=== PATIENT | male | born 1955 | race Caucasian/White ===

== ENCOUNTER 2017-04-15 10:00 | Inpatient (IN) | payer MEDICAID ==
[~2017-04-15] VITALS: Ht 172.7 cm; Wt 75.0 kg
[2017-04-15 12:10] LABS: ALBUMIN 3.6 g/dL (3.4-5.0); BILIRUBIN TOTAL 0.44 mg/dL (0.20-1.00); CALCIUM 8.4 mg/dL (8.5-10.1); CARBON DIOXIDE 25.9 mmol/L (21-32); POTASSIUM SERUM 3.3 mmol/L (3.5-5.1); TOTAL PROTEIN, SERUM 7.5 g/dL (6.4-8.2)
[2017-04-15 12:13] LABS: CREATININE SERUM 7.3 mg/dL (0.7-1.3)
[2017-04-15 12:14] LABS: BASOPHIL % 0.3 % (0-2); PLATELET COUNT 182 x10^3mcL (130-400); RED CELL DISTRIBUTION WIDTH 14.4 % (11.5-14.5)
[2017-04-15 15:13] VITALS: BP 174/83
[2017-04-15 17:02] LABS: MAGNESIUM 2.5 mg/dL (1.8-2.4)
[2017-04-15 17:03] LABS: CHOLESTEROL/HDL RATIO 1.9
[2017-04-15 17:07] LABS: RED BLOOD CELLS 3.12 M/mm3 (4.52-5.90)
[2017-04-15 17:09] LABS: FREE T4 1.13 ng/dL (0.76-1.46); FREE THYROXINE INDEX 2.2 ug/dL (1.4-4.5); T3 TOTAL 0.85 ng/mL; T4(THYROXINE) 6.4 ug/dL (4.7-13.3)
[2017-04-15 17:30] LABS: TOTAL IRON BINDING CAPACITY 263 ug/dL (250-450)
[2017-04-15 17:33] LABS: IRON 249 ug/dL (65-170)
[2017-04-15 19:49] VITALS: BP 136/73
[2017-04-16 04:43] LABS: microscopic required? YES; urine erythrocyte 2+ (NEGATIVE)
[2017-04-16 04:48] LABS: AMPHETAMINE QUAL UR NONE DETECTED (NEG <=1000)
[2017-04-16 04:49] VITALS: BP 132/71
[2017-04-16 06:07] LABS: BASOPHIL % 0.4 % (0-2); PLATELET COUNT 160 x10^3mcL (130-400); RED CELL DISTRIBUTION WIDTH 14.3 % (11.5-14.5)
[2017-04-16 06:15] LABS: CALCIUM 7.6 mg/dL (8.5-10.1); CARBON DIOXIDE 27.3 mmol/L (21-32); MAGNESIUM 2.8 mg/dL (1.8-2.4); PHOSPHOROUS 6.3 mg/dL (2.5-4.9); POTASSIUM SERUM 4.2 mmol/L (3.5-5.1)
[2017-04-16 06:28] LABS: CREATININE SERUM 10.3 mg/dL (0.7-1.3)
[2017-04-16 07:30] VITALS: BP 134/76
[2017-04-16 08:43] VITALS: BP 134/76
== END 2017-04-16 10:25 | disposition left against medical advice (07) | DRG 243 ==
LOC: ED 10:00 → DU 13:50
PROVIDERS: Emergency Medicine; Family Medicine
DX: K21.9 Gastro-esophageal reflux disease without esophagitis (principal); N17.0 Acute kidney failure with tubular necrosis; I50.43 Acute on chronic combined systolic (congestive) and diastolic (congestive) heart failure; I13.2 Hypertensive heart and chronic kidney disease with heart failure and with stage 5 chronic kidney disease, or end stage renal disease; N18.6 End stage renal disease; E11.22 Type 2 diabetes mellitus with diabetic chronic kidney disease; E11.65 Type 2 diabetes mellitus with hyperglycemia; E87.6 Hypokalemia; D63.1 Anemia in chronic kidney disease; Z68.25 Body mass index [BMI] 25.0-25.9, adult; Z99.2 Dependence on renal dialysis; Z89.511 Acquired absence of right leg below knee; Z79.4 Long term (current) use of insulin
CPT/HCPCS: 82962; 83880; 84439; J2060; J3490; J7030; Q0092